=== PATIENT | female | born 2000 | race African-American/Black ===

== ENCOUNTER 2025-05-18 15:04 | Outpatient (CLI) | payer OTHER, SELFPAY ==
[2025-05-18 15:54] LABS: Beta HCG Quantitative < 2.39 mIU/ML
--- OUTSIDE RECORDS SUMMARY | 2025-05-18 16:28 | XMS_ITS | Clinical Summary ---
Author Organization [facility] Address [address] [place] [address] Care Team Providers Care Family Support Coordinator Name Role Phone Nydia Gavin Primary Care Provider [phone] Allergies Active Allergy Reactions Criticality Noted Date Comments Oxycodone Vomiting Low 03/01/2024 Medications ondansetron ODT (ZOFRAN-ODT) 4 mg disintegrating tablet Take 1 tablet (4 mg total) by mouth every 8 (eight) hours as needed for nausea or vomiting 20 tablet 1 03/08/20 24 Active acetaminophen (TYLENOL) 325 mg tablet Take 2 tablets (650 mg total) by mouth every 8 (eight) hours as needed for fever 30 tablet 1 03/08/20 24 Active calcium carbonate-vitamin D3 1,250mg (500mg elemental) - 5 mcg (200 units) per tablet TAKE 1 TABLET BY MOUTH TWICE A DAY FOR BONE SUPPORT Active ergocalciferol (VITAMIN D) 50,000 unit capsule ergocalciferol (vitamin D2) 1,250 mcg (50,000 unit) capsule Active medroxyPROGESTERon e (Depo-Provera) 150 mg/mL injection Inject 1 mL every 3 months by intramuscular route as directed for 90 days. 02/03/20 24 Active omeprazole (PriLOSEC) 20 mg capsule omeprazole 20 mg capsule,delayed release Active HYDROcodone-acetam inophen (NORCO) 5-325 mg per tabletIndications: Pain Take 1 tablet by mouth every 6 (six) hours as needed for pain 10 tablet 04/05/20 24 Active ketorolac (TORADOL) 10 mg tablet Take 1 tablet (10 mg total) by mouth every 6 (six) hours as needed for pain 20 tablet 09/07/19 25 Active Active Problems Problem Noted Date Diagnosed Date Sepsis due to Escherichia co li without acute organ dysfunction 03/03/2024 Bacteremia due to Gram-negative bacteria 024 Cholecystitis 03/02/2024 Acute cholecystitis 03/02/2024 Assessment & Plan (03/02/2024 8:51 PM CDT): As noted on CT imaging and right upper quadrant ultrasound assessment Patient undergo surgical intervention tomorrow morning General surgery consultation notified in ER NPO Pain management p.r.n. IV fluid IV antibiotic with ceftriaxone and Flagyl Bacteremia 03/02/2024 Assessment & Plan (03/02/2024 8:52 PM CDT): 1 of 2 sets of blood cultures obtained early this morning on 03/02/2024 have returned positive for Gram-negative bacilli Repeat blood cultures obtained upon returned to emergency room this evening IV fluid IV antibiotic Rocephin Infectious Disease consultation Acute cystitis 03/02/2024 Assessment & Plan (03/02/2024 8:53 PM CDT): As referred by patient during initial ER presentation light last evening/early this morning Urine culture sent awaiting culture results IV fluid IV antibiotic with Rocephin Patient indicates she received 1 dose of IV antibiotics prior to being discharge and took 1st dose of oral medication while in home with cefdinir COVID-19 03/02/2024 Assessment & Plan (03/02/2024 8:55 PM CDT): Positive COVID testing on 03/01/2024 during initial evaluation in emergency room Patient is on room air, denies active complaints of shortness of breath Physical examination identifies lungs are clear to auscultation bilaterally Patient refers having received 2 COVID vaccines and 3 boosters Isolation Monitor closely for signs of deterioration requiring further interventions for treatment Vitamin D deficiency 10/31/2021 Menorrhagia 11/13/2017 Surgical History Surgery Date Site/Laterality Comments CYSTECTOMY N/A Medical History Medical History Date Comments Cholecystitis 03/02/2024 Sepsis due to Escherichia co li without acute organ dysfunction (HCC) 03/03/2024 Vitamin D deficiency 10/31/2021 Menorrhagia 11/13/2017 Motion sickness Social History Tobacco Use Types Packs/Day Years Used Date Smoking Tobacco: Never Tobacco Cessation:Counseling Given: Not Answered [facility] Utilities Answer Date Recorded In the past 12 months has th e electric, gas, oil, or water company threatened to shut off services in your home? No 03/03/2024 Social Connection and Isolation Panel Answer Date Recorded In a typical week, how many times do you talk on the phone with family, friends, or neighbors? More than three times a week 03/03/2024 How often do you get togethe r with friends or relatives? More than three times a week 03/03/2024 How often do you attend [facility] ch or mormonism services? More than 4 times per year 03/03/2024 Do you belong to any clubs o r organizations such as yazidism groups, unions, fraternal or athletic groups, or school groups? No 03/03/2024 How often do you attend meet ings of the clubs or organizations you belong to? Never 03/03/2024 Are you , , di vorced, , never , or living with a partner? Never 03/03/2024 AUDIT-C Answer Date Recorded Q1: How often do you have a drink containing alc ohol? Monthly or less 04/05/2024 Q2: How many drinks containi ng alcohol do you have on a typical day when you are drinking? 1 or 2 04/05/2024 Q3: How often do you have si x or more drinks on one occasion? Never 04/05/2024 Overall Financial Resource Strain (CARDIA) Answe r Date Recorded How hard is it for you to pa y for the very basics like food, housing, medical care, and heating? Not very hard 03/03/2024 Hunger Vital Sign Answer Date Recorded Within the past 12 months, y ou worried that your food would run out before you got the money to buy more. Never true 03/03/20 24 Within the past 12 months, t he food you bought just didn't last and you didn't have money to get more. Never true 03/03/2024 PRAPARE - Transportation Answer Date Re corded In the past 12 months, has l ack of transportation kept you from medical appointments or from getting medications? No 02/14 In the past 12 months, has l ack of transportation kept you from meetings, work, or from getting things needed for daily living? No 03/03/2024 Housing Stability Vital Sign Answer Dariusz e Recorded In the last 12 months, was t here a time when you were not able to pay the mortgage or rent on time? No 03/03/2024 In the past 12 months, how m any times have you moved where you were living? 0 03/03/2024 At any time in the past 12 m [facility], were you homeless or living in a [place] facility (including now)? No 03/03/2024 Personal Safety Answer Date Recorded Have you ever been in or are you currently in a harmful physical or emotional relationship or is someone making you feel afraid or unsafe? 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 Gender Identity Not on file Sexual Orientation Not on file Last Filed Vital Signs Vital Sign Reading Time Taken Comments Blood Pressure 122/77 09/06/2024 7:48 PM CDT Pulse 60 09/06/2024 7:48 PM CDT Temperature 37 C (98.6 F) 09/06/2024 5:54 PM CDT Respiratory Rate 16 09/06/2024 7:48 PM CDT Oxygen Saturation 100% 09/06/2024 7:48 PM CDT Inhaled Oxygen Concentration - - Weight 73.5 kg (162 lb 0.6 oz) 09/06/2024 5:54 P M CDT Height 154.9 cm (5' 1) 05/05/2024 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 Body Mass Index 30.62 05/05/2024 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 Plan of Treatment Health Maintenance Due Date Last Done Comments Cervical Cancer Screening 2000 Depression Screening 2000 Hepatitis C Screening 2000 Regular Well Visit/Exam 18-64 2018 HPV Vaccines (3 - 3-dose series) 10/31/2020 08/08/19 21, 12/10/2017 Influenza Vaccine (#1) 2025 3, 06/13/2009, 04/11/2008 DTaP/Tdap/Td Vaccine (8 - Td or Tdap) 11/06/2032 11/06/2022, 10/16/2012, 01/29/2005, Additional history exists Hepatitis B Screening Completed 02/24/2001 , 2000, 2000 Pneumococcal vaccine <65 Completed 003, 02/24/2001, 2000, Additional history exists Varicella Vaccines Completed 04/11/2008, 1 08/04/2002, 05/24/2003 Insurance [facility] Advance Directives For more information, please contact: [phone] * Full Code (Latest Code Status on File) Date Activated Date Inactivated Comments 03/02/2024 8:45 PM 03/08/2024 5:42 PM Care Teams Family Support Coordinator Relationship Specialty Start Date End Date Nydia Gavin PA PCP - General Disk Recordist 03/02/24
== END 2025-05-18 15:05 | disposition home or self-care (01) ==
LOC: ANHLAB 15:06
PROVIDERS: Visit Provider Student in an Organized Health Care Education/Training Program
DX: Z30.9 Encounter for contraceptive management, unspecified (principal)
CPT/HCPCS: 36415; 84702